=== PATIENT | male | born 1965 | race Caucasian/White ===

== ENCOUNTER 2019-12-18 17:48 | Emergency (ER) | payer MEDICAID, SELFPAY ==
[2019-12-18 17:50] VITALS: BP 157/98; PULSE 73; RESP 16; TEMP 36.7; O2SAT 97; BMI 27.3
--- NOTE | 2019-12-18 19:59 | ED.VISSUMM ---
- ER Visit Summary Date of Service: 12/18/19 Chief Complaint: Left index finger laceration History of Present Illness: The patient is a 54 M who has a left index finger laceration. He cut it on a knife earlier today. His last tetanus was about 5 months ago. He did have some paresthesias to the finger. Denies any other injuries. Physical Examination: Left hand exam reveals a 1.5 cm left index finger laceration distal to the DIP joint on the pad side of the finger. Sensation is intact. Test Results: None performed Emergency Department Course and Treatment: The patient had 3, 5?0 simple nylon sutures placed. He will have these out in 7 to 10 days. He was educated on local wound care. Treatment Plan: [] Disposition: Discharge Impression: Left index finger laceration, 1.5 cm This note was generated with [employer] dictation software. It may contain incorrect words, spelling, and punctuation that were not noted in review of the chart prior to signing ED Disposition - Plan for ED Patient: Disposition: Home or Assisted Living Instructions: LACERATION, All Referrals: Carina Diamond NP-C [Primary Care Provider] -
[2019-12-18 20:03] VITALS: PULSE 80; RESP 16; O2SAT 98
== END 2019-12-18 20:14 | disposition home or self-care (01) ==
PROVIDERS: Emergency Provider Emergency Medicine; PCP Nurse Practitioner Family
DX: S61.211A Laceration without foreign body of left index finger without damage to nail, initial encounter (principal); W26.0XXA Contact with knife, initial encounter; Y93.9 Activity, unspecified; Y92.9 Unspecified place or not applicable; Z72.0 Tobacco use
CPT/HCPCS: 12001; 99283